=== PATIENT | female | born 1935 | race African-American/Black ===

== ENCOUNTER 2021-10-10 14:52 | Emergency (ER) | payer BC, MEDICARE ==
[~2021-10-10] VITALS: Ht 160 cm; Wt 80.0 kg
[~2021-10-10 14:52] MED LIST: ASPI-1073 PO; LIP40 PO; METF-414 PO
[2021-10-10 14:58] VITALS: BP 206/90
== END 2021-10-10 18:58 | disposition left against medical advice (07) ==
LOC: ER 14:52
DX: Z53.21 Procedure and treatment not carried out due to patient leaving prior to being seen by health care provider (principal)